=== PATIENT | female | born 1985 | race Hispanic/Latino ===

== ENCOUNTER 2018-08-06 21:18 | Emergency (ER) | payer MEDICAID, OTHER ==
[2018-08-06] MEDS ORDERED: NACL 0.9% 1000 ML 1,000 ML IV ONE (21:34)
[2018-08-06 21:48] LABS: Basophils # (Auto) 0.1 K/mm3 (0.0-0.1); Basophils % (Auto) 0.9 % (0.0-1.8); Eosinophils # (Auto) 0.1 K/mm3 (0.0-0.4); Eosinophils % (Auto) 1.3 % (0.0-4.3); Hematocrit 36.7 % (30.3-42.9); Hemoglobin 12.3 gm/dl (10.1-14.3); Lymphocytes # (Auto) 1.3 K/mm3 (1.2-5.4); Lymphocytes % (Auto) 19.5 % (13.4-35.0); Mean Corpuscular HGB Conc 34 % (30-34); Mean Corpuscular Volume 84 fl (79-97); Monocytes # (Auto) 0.5 K/mm3 (0.0-0.8); Monocytes % (Auto) 7.9 % (0.0-7.3); Platelet Count 284 K/mm3 (140-440); Red Blood Count 4.36 M/mm3 (3.65-5.03); Red Cell Distribution Width 13.8 % (13.2-15.2)
[2018-08-06 22:04] LABS: Alanine Aminotransferase 12 units/L (7-56); Albumin 4.1 g/dL (3.9-5); BUN/Creatinine Ratio 16; Blood Urea Nitrogen 14 mg/dL (7-17); Calcium 8.9 mg/dL (8.4-10.2); Hemolysis Index 6
[2018-08-06] MEDS ORDERED: IBUPROFEN PO ONE (23:26)
--- NOTE | 2018-08-06 23:30 | Emergency Department Report ---
ED Psych HPI - General Chief Complaint: Abdominal Pain Stated Complaint: PANIC ATTACK Time Seen by Provider: 08/06/18 23:19 Source: patient Mode of arrival: Ambulatory - History of Present Illness Initial Comments: Patient is a 33 years old female with history of anxiety and panic attack. Patient presented to the ER stating that she is depressed. Patient stated that she lost custody of her kids 5 month ago. Patient is crying in tears. Patient stated that she is homeless. She stated that she had 2 panic attacks today and that causes her to have back pain and abdominal pain. Patient denied any suicidal or homicidal ideation. She denied visual or auditory hallucination. MD Complaint: feels depressed Associated Psychiatric Symptoms: depression - Related Data Allergies Allergy/AdvReac Type Severity Reaction Status Date / Time No Known Allergies Allergy Verified 08/06/18 21:34 ED Review of Systems ROS: Stated complaint: PANIC ATTACK Other details as noted in HPI Comment: All other systems reviewed and negative Constitutional: denies: chills, fever Respiratory: denies: cough, orthopnea, shortness of breath, SOB with exertion, SOB at rest, wheezing Cardiovascular: denies: chest pain, palpitations, dyspnea on exertion Gastrointestinal: abdominal pain. denies: nausea, vomiting, diarrhea, constipa tion, hematemesis, melena, hematochezia Genitourinary: denies: urgency, dysuria Neurological: denies: headache, weakness Psychiatric: anxiety, depression. denies: auditory hallucinations, visual hallucinations, homicidal thoughts, suicidal thoughts ED Past Medical Hx - Past Medical History Previous Medical History?: Yes Hx Psychiatric Treatment: Yes (anxeity) - Surgical History Past Surgical History?: Yes Additional Surgical History: cyst removed from breast - Social History Smoking Status: Never Smoker Substance Use Type: Alcohol, Marijuana ED Physical Exam - General Limitations: No Limitations General appearance: alert, in no apparent distress, anxious, other (tearfull) - Head Head exam: Present: atraumatic, normocephalic, normal inspection - Eye Eye exam: Present: normal appearance - ENT ENT exam: Present: normal exam, normal orophraynx, mucous membranes moist - Neck Neck exam: Present: normal inspection, full ROM. Absent: tenderness, menin gismus, lymphadenopathy, thyromegaly - Respiratory Respiratory exam: Present: normal lung sounds bilaterally. Absent: respiratory distress, wheezes, rales, rhonchi, stridor, chest wall tenderness, accessory muscle use, decreased breath sounds, prolonged expiratory - Cardiovascular Cardiovascular Exam: Present: regular rate, normal rhythm, normal heart sounds - GI/Abdominal GI/Abdominal exam: Present: soft, normal bowel sounds. Absent: distended, tenderness, guarding, rebound, rigid, organomegaly, mass, bruit, pulsatile mass, hernia - Extremities Exam Extremities exam: Present: normal inspection, full ROM, normal capillary refill. Absent: pedal edema, calf tenderness - Back Exam Back exam: Present: normal inspection, full ROM. Absent: tenderness, CVA tenderness (R), CVA tenderness (L), muscle spasm - Neurological Exam Neurological exam: Present: alert, oriented X3, CN II-XII intact, normal gait, reflexes normal - Psychiatric Psychiatric exam: Present: depressed, anxious. Absent: agitated, flat affect, manic, homicidal ideation, suicidal ideation - Skin Skin exam: Present: warm, intact, normal color ED Course Vital Signs 08/06/18 21:22 Temperature 98.4 F Pulse Rate 102 H Respiratory 20 Rate Blood Pressure 136/89 O2 Sat by Pulse 97 Oximetry ED Medical Decision Making - Lab Data Result diagrams: 08/06/18 21:37 08/06/18 21:37 - Medical Decision Making Patient is a 33 years old female with history of anxiety and panic attack. Patient presented to the ER stating that she is depressed. Patient stated that she lost custody of her kids 5 month ago. Patient is crying in tears. Patient stated that she is homeless. She stated that she had 2 panic attacks today and that causes her to have back pain and abdominal pain. Patient denied any suicidal or homicidal ideation. She denied visual or auditory hallucination. Patient was seen by our mental health human anatomy teacher and given outpatient referral. Patient will be discharged to follow-up with her primary care physician in the next 2-3 days and to return to the ER if her symptoms are not improved. Critical care attestation.: If time is entered above; I have spent that time in minutes in the direct care of this critically ill patient, excluding procedure time. ED Disposition Clinical Impression: Abdominal pain, Depression, Panic attack Disposition: - TO HOME OR SELFCARE Is pt being admited?: No Condition: Stable Instructions: Abdominal Pain (ED), Depression (ED), Anxiety (ED) Referrals: OBIEKMARI,ONWURA, MD [Primary Care Provider] - 3-5 Days
[2018-08-06 23:37] LABS: Bilirubin,Urine NEG (Negative); Blood,Urine NEG (Negative); Color,Urine Yellow (Yellow); Mucus,Urine FEW /HPF; Protein,Urine <15 mg/dL mg/dL (Negative); RBC,Urine < 1.0 /HPF (0.0-6.0); Urobilinogen,Urine < 2.0 mg/dL (<2.0)
[2018-08-06 23:46] LABS: Amphetamine Screen,Urine PRESUMPTIVE NEGATIVE; Benzodiazepines Screen,Urine PRESUMPTIVE NEGATIVE; Cocaine Screen,Urine PRESUMPTIVE NEGATIVE; Methadone Screen,Urine PRESUMPTIVE NEGATIVE; Opiate Screen,Urine PRESUMPTIVE NEGATIVE
[2018-08-07 00:02] LABS: Cannabinoid Screen,Urine PRESUMPTIVE POSITIVE
[2018-08-07 00:35] LABS: HCG Qualitative,Urine Negative (Negative)
[2018-08-07 05:01] VITALS: BP 103/69
== END 2018-08-07 05:11 | disposition home or self-care (01) ==
LOC: ED 21:18
DX: F41.0 Panic disorder [episodic paroxysmal anxiety] (principal); F32.9 Major depressive disorder, single episode, unspecified; R10.9 Unspecified abdominal pain
CPT/HCPCS: 36415; 80053; 80307; 81001; 81025; 85025; 99284; G0480; J7030; 80320

== ENCOUNTER 2019-01-20 22:28 | Emergency (ER) | payer OTHER ==
[2019-01-21 00:04] LABS: Basophils # (Auto) 0.1 K/mm3 (0.0-0.1); Basophils % (Auto) 1.3 % (0.0-1.8); Eosinophils # (Auto) 0.2 K/mm3 (0.0-0.4); Eosinophils % (Auto) 2.2 % (0.0-4.3); Hematocrit 36.1 % (30.3-42.9); Hemoglobin 12.4 gm/dl (10.1-14.3); Lymphocytes % (Auto) 26.5 % (13.4-35.0); Mean Corpuscular HGB Conc 34 % (30-34); Mean Corpuscular Volume 87 fl (79-97); Monocytes # (Auto) 0.7 K/mm3 (0.0-0.8); Monocytes % (Auto) 8.9 % (0.0-7.3); Platelet Count 235 K/mm3 (140-440); Red Blood Count 4.15 M/mm3 (3.65-5.03); Red Cell Distribution Width 14.4 % (13.2-15.2)
[2019-01-21 00:27] LABS: Alanine Aminotransferase 14 units/L (7-56); BUN/Creatinine Ratio 23; Blood Urea Nitrogen 18 mg/dL (7-17); Calcium 8.8 mg/dL (8.4-10.2); Hemolysis Index 7
[2019-01-21] MEDS ORDERED: TYLENOL PO ONE (01:55)
--- NOTE | 2019-01-21 02:31 | XRay Report ---
LEFT SHOULDER, 3 VIEWS, 01/21/2019 INDICATION / CLINICAL INFORMATION: left shoulder pain. COMPARISON: None available. FINDINGS: No fracture or dislocation. No significant degenerative change. Visualized left ribs are intact. IMPRESSION: Negative exam. Signer Name: Alejandra Corley MD Signed: 01/21/2019 1:26 AM Workstation Name: [id number]
--- NOTE | 2019-01-21 02:49 | Cat Scan Report ---
CT cervical spine wo con INDICATION / CLINICAL INFORMATION:. . neck pain. TECHNIQUE: Axial CT imaging of the cervical spine was obtained without IV contrast. Coronal and sagittal reforma tted imaging obtained and reviewed. All CT scans at this location are performed using CT dose reducti on for ALARA by means of automated exposure control. COMPARISON: None available. FINDINGS: No fracture of the cervical spine disease noted. Alignment is normal. 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 There is right-sided/central disc bulge at C4-C5 with slight effacement of the spinal cord. Visualized lung apices are clear. IMPRESSION: 1. Suspect disc bulge/herniation at C4-C5 centrally and extending into the right neural foramen. Plea se correlate with clinical symptoms. MRI suggested to confirm these findings. Signer Name: Alejandra Corley MD Signed: 01/21/2019 1:45 AM Workstation Name: [id number]
[2019-01-21 03:01] VITALS: BP 115/78
[2019-01-21] MEDS ORDERED: ZOFRAN IM ONE (03:51)
[2019-01-21] MEDS ORDERED: SUBLIMAZE IM ONE (03:51)
[2019-01-21] MEDS ORDERED: IBUPROFEN PO ONE (03:52)
[2019-01-21] MEDS ORDERED: DECADRON IM ONE (03:52)
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
== END 2019-01-21 04:56 | disposition home or self-care (01) ==
LOC: ED 22:28
DX: M54.12 Radiculopathy, cervical region (principal); F41.9 Anxiety disorder, unspecified; F17.210 Nicotine dependence, cigarettes, uncomplicated
CPT/HCPCS: 36415; 72125; 73030; 80053; 82962; 84703; 85025; 93005; 93010; 96372; 99285; J1100; J2405; J3010